=== PATIENT | male | born 1985 | race Caucasian/White ===

== ENCOUNTER 2018-05-01 13:52 | Day surgery (SDC) | payer OTHER, SELFPAY ==
[2018-04-27 13:21] VITALS: BMI 28.0
[2018-05-01] VITALS (7 sets, daily range): BP systolic 100–154; BP diastolic 54–105; PULSE 75–98; RESP 11–17; TEMP 36.3–36.9; O2SAT 94–100; BMI 28.0
[2018-05-01] MEDS: LACTATED RINGERS 1,000 ML 42 ML IV (14:23)
--- NOTE | 2018-05-01 14:27 | SUR.PREOP ---
22 gauge catheter placed in left wrist, 2 attempts, pt. tolerated well. tegaderm and tape and coban used to secure. Pt. having significant sweating, states its from my cervical shunt, pt. states he really doesn't feel hot but pt. is sweating prefusely.
--- NOTE | 2018-05-01 15:12 | PM.PREOP ---
Pre-operative Note Interval Note Pre-op Check: Yes History & Physical Reviewed by Physician and Yes Exam Performed Changes: Yes
[2018-05-01] MEDS: CEFAZOLIN 2 GM/100 ML FROZ.PIGGY IV (15:40)
--- NOTE | 2018-05-01 15:47 | SUR.OPER ---
Supine on padded OR bed, head on pillow, arms secured on padded arm boards at <90 degrees abduction, lateral brace at right thigh, right leg is under control of surgeon, left leg is taped over the blanket to the OR table, safety belt at abdomen.
[2018-05-01] MEDS: BUPIVACAINE 0.5% (PF) VIAL 30 ML INJ (16:02)
[2018-05-01] MEDS: MORPHINE 4 MG/ML INJ INJ (16:03)
--- NOTE | 2018-05-01 16:41 | P.OP_ITS ---
Operative Date/Time/Diagnoses Date of procedure: 05/01/18 Time of procedure: 16:20 Pre-op diagnosis: Right knee lateral meniscus tear Post-op diagnosis: same Procedure & Clinicians Procedure: Right knee arthroscopy with partial lateral meniscectomy Same procedure as scheduled: Yes Indications: The patient is a 32-year-old gentleman who has had persistent right knee pain with an MRI indicative of a locked bucket-handle meniscus tear of the lateral meniscus. He has agreed to arthroscopic excision after discussion of the risks benefits and alternatives. Risks discussed included but were not limited to: Failure to relieve pain, possible long-term arthritis , infection, nerve damage, deep venous thrombosis, pulmonary embolism, stroke, myocardial infarction, permanent paralysis and . Surgeon: Hipolito Lyons Click Yes if Unassisted: Yes Anesthesia Type: General and Local Operative Notes Findings: 1. Normal suprapatellar pouch 2. 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 Normal appearing trochlea. 3. Normal medial and lateral gutters 4. Normal medial compartment 5. Intercondylar notch notable for normal ACL and visualized portion of the PCL. There was a displaced fragment of lateral meniscus in the intercondylar notch. 6. Lateral compartment notable for a displaced bucket-handle tear which was not repairable due to the deformation and fraying of the meniscus. 7. Normal posterolateral compartment 8. Normal posterior medial compartment Closure Type: primary Specimen(s): none sent Implants & Drains: None. Estimated Blood Loss (mL): 0 Blood products transfused: none Tourniquet time (min): 16 Procedure in detail: The patient was seen in the preoperative area where he identified the right knee as the operative site and this was marked with my initials. He received preoperative antibiotics with appropriate 1st generation cephalosporins. He was taken to the operating room and placed on the operating room table in supine position where he underwent induction with general anesthetic. Following the onset of satisfactory general anesthesia, tourniquet was placed about his proximal right thigh and his right leg was prepared from the toes to the tourniquet with ChloraPrep and draped through sterile drapes. Prior to prepping and draping he underwent an exam under anesthesia with findings of no evidence of loss of motion and no evidence of ligamentous laxity. A superior medial portal was created for the pump cannula. A lateral portal was created for the arthroscope and the knee was diagnostically arthroscoped standard order with result given above. During diagnostic arthroscopy and medial portal was created for the probe and other tools. The displaced lateral meniscus tear was excised after we determined it was not repairable. This was accomplished with straight biting forceps and the meniscal shaver. At this point all arthroscopic equipment was removed. The wounds were closed with 4 0 Monocryl and Steri-Strips. The knee was injected with 20 mL 0.5% Marcaine for postoperative pain control. Dressings of sterile 4x4s, sterile ABD, cast padding and León wrap were applied. The patient was then transported to the recovery room in good condition having tolerated the procedure well. Complications: none Condition: stable Disposition: PACU Plan for aftercare: The patient may weight bear as tolerated. He will be discharged today. He may remove his dressing in 3 days and shower normally. No physical therapy should be necessary however if he appears stiff at his 1st follow-up visit we will order physical therapy for him.
== END 2018-05-01 17:31 | disposition home or self-care (01) ==
PROVIDERS: PCP Family Medicine; Visit Provider Orthopaedic Surgery
PROC: (CPT 29870; principal; 2018-05-01 15:45)
DX: S83.251A Bucket-handle tear of lateral meniscus, current injury, right knee, initial encounter (principal); S83.231A Complex tear of medial meniscus, current injury, right knee, initial encounter; I10 Essential (primary) hypertension; X50.9XXA Other and unspecified overexertion or strenuous movements or postures, initial encounter; Y93.89 Activity, other specified
CPT/HCPCS: 29881; J0690; J1100; J2250; J2270; J2405; J2704; J3010